=== PATIENT | female | born 1955 | race Asian ===

== ENCOUNTER 2017-11-12 08:12 | Outpatient (CLI) | payer BC ==
--- NOTE | 2017-11-12 09:33 | MMO ---
BILATERAL SCREENING MAMMOGRAM: DATE: 11/12/17 HISTORY: 62-year-old female for screening mammography. COMPARISON: 09/12/13, 08/28/08. FINDINGS: Bilateral MLO and CC views of the breasts show scattered fibroglandular breast tissue. A benign-appea ring calcification is seen in the left breast. There is no evidence of suspicious mass, suspicious cl uster of microcalcifications, or area of architectural distortion. Interpretation of this mammogram was performed with the assistance of computer-aided detection. IMPRESSION: BIRADS 2: Benign Finding(s) Annual screening mammography is recommended. POS: ALICIA
== END 2017-11-12 08:13 | disposition home or self-care (01) ==
LOC: SCSMAMMO 08:12
PROVIDERS: ATTEND Family Medicine
DX: Z12.31 Encounter for screening mammogram for malignant neoplasm of breast (principal)
CPT/HCPCS: 77067

== ENCOUNTER 2018-12-19 06:32 | Day surgery (SDC) | payer BC ==
[2018-12-18 11:18] VITALS: BMI 21.1
[~2018-12-19 06:32] MED LIST: Fluorouracil 100 MG, Enoxaparin Sodium 25 MG, EPINEPHrine 0.3 MG in Ophthalmic Irrigati... IRR SCH
[2018-12-19] MEDS ORDERED: Midazolam HCl 2 mg/2 ml Vial ONE (06:40)
[2018-12-19] MEDS ORDERED: Fentanyl 100 MCG/2 ML VIAL ONE (06:40)
[2018-12-19] MEDS ORDERED: Phenylephrine 2.5% Ophth Soln 5 ML BOT ONE (06:50)
[2018-12-19] MEDS ORDERED: Cyclopentolate 1% Opth Drop 2 ML BOT ONE (06:50)
--- NOTE | 2018-12-19 10:37 | OP ---
DATE OF PROCEDURE: 12/19/2018 PREOPERATIVE DIAGNOSIS: Macular hole, right eye. POSTOPERATIVE DIAGNOSIS: Macular hole, right eye. PROCEDURES PERFORMED: Pars plana vitrectomy and internal limiting membrane peel, right eye. ANESTHESIA: Local with monitored anesthesia care. PROCEDURE IN DETAIL: The patient was identified in the preoperative holding area. Appropriate informed consent for the planned surgical procedure on the right eye had been obtained. The patient was transported to the operative suite, appropriate cardiopulmonary monitoring was established. Local anesthesia was obtained using retrobulbar modified Van Lint lid block using 50:50 mixture of 4% lidocaine and 0.75% bupivacaine. The patient was prepped and draped in usual sterile manner for ophthalmic surgery in the right eye. Lid speculum was placed in the right eye. A 25-gauge trocar was placed in conjunctivae and sclerae supratemporally, inferotemporally, supranasally. Infusion line was placed inferotemporally. Light pipe vitreous cutter was inserted into the eye. Core vitrectomy was performed. Indocyanine green dye was infused on the posterior pole x1 identifying the internal limiting membrane. This was elevated using membrane scraper and peeled across the macula using end-gripping forceps. Complete air-fluid exchange was performed with 10 minutes being left for fluid to drain posteriorly. The area behind the sclerotomy was inspected with indirect ophthalmoscopy and prophylactic laser was placed. A 28% sulfur hexafluoride gas was infused into the eye. Trocars were removed. The eye was noted to retain pressure well. Retrobulbar Kenalog and subconjunctival Ancef were placed. Antibiotic ointment was placed. Eye was patched and shielded. The patient was taken to postoperative recovery unit in good condition having suffered no immediate perioperative complications. The patient was instructed to keep patch and shield on, avoid lifting or bending. Followup appointment with Dr. Sousa. Job ID: [id number]
[2018-12-19] MEDS ORDERED: Triamcinolone 40 MG/ML VIAL ONE (14:16)
[2018-12-19] MEDS ORDERED: Lidocaine 4% PF 5 ML AMP ONE (14:16)
[2018-12-19] MEDS ORDERED: CEFAZOLIN 1 GM VIAL ONE (14:16)
[2018-12-19] MEDS ORDERED: Bupivacaine 10 ML VIAL ONE (14:16)
[2018-12-19] MEDS ORDERED: Lidocaine 1% PF 5 ML VIAL ONE (14:16)
[2018-12-19] MEDS ORDERED: PROPOFOL 200 MG/20 ML VIAL ONE (14:16)
[2018-12-19] MEDS ORDERED: Indocyanine Green 25 MG/10 ML VIAL ONE (14:16)
== END 2018-12-19 10:05 | disposition home or self-care (01) ==
LOC: SDC 06:32
PROVIDERS: ATTEND Ophthalmology Retina Specialist
PROC: 08T43ZZ Resection of Right Vitreous, Percutaneous Approach (ICD-10-PCS; principal; 2018-12-19)
PROC: 08NE3ZZ Release Right Retina, Percutaneous Approach (ICD-10-PCS; principal; 2018-12-19)
DX: H35.341 Macular cyst, hole, or pseudohole, right eye (principal); Z91.013 Allergy to seafood
CPT/HCPCS: 67025; J0171; J1650; J2250; J3010; J9190